=== PATIENT | female | born 1945 | race Caucasian/White ===

== ENCOUNTER 2016-10-17 07:43 | Day surgery (SDC) | payer MEDICARE, OTHER ==
[~2016-10-17] VITALS: Ht 157.5 cm; Wt 81.0 kg
[~2016-10-17 07:43] MED LIST: CeFAZolin Inj 2 GM in IV Premix 1 EACH IV ONE; HALO50CR2 TP; Lactated Ringer's 1,000 ML IV SCH; SIMV20TA4 PO; VALA100026 PO
[2016-10-17 08:05] VITALS: BP 157/78; PULSE 62; RESP 16; O2SAT 98
--- NOTE | 2016-10-17 18:18 | OP ---
[address] [address] OPERATIVE REPORT PATIENT: ANNE NORMAN : 1945 MR#: [id number] ADMIT: 10/17/2016 JOB ID: [id number] DATE OF SURGERY: 10/17/2016 ABORTED PROCEDURE NOTE: Patient was due to undergo arthroscopy of the right knee for partial medial and lateral meniscectomies. 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 On further questioning of the patient, she actually indicated that when she was in [place] for most of her life, she did have surgery for gallbladder removal. At that time, they gave her some type of blood product to keep her from having too much bleeding. Since the patient has not had a Hematology consultation and we are not totally sure of what type of hemophilia carrier she is, we have decided to abort going forward with the procedure and wait until she has a hematology consultation. We will arrange for hematology consultation and then reschedule the patient for surgery. The patient understood the rationale for not proceeding with the surgery today since it would not have been in her best interest. SURGEON: Nura Mai MD PREOPERATIVE DIAGNOSIS(ES):Right knee medial and lateral meniscal tears. Degenerative arthritis right knee. CC: [facility] Orthopedics. MICHELINED
== END 2016-10-17 23:59 | disposition home or self-care (01) ==
LOC: SAS 07:43
PROVIDERS: ATTEND Orthopaedic Surgery
DX: M23.300 Other meniscus derangements, unspecified lateral meniscus, right knee (principal); M23.303 Other meniscus derangements, unspecified medial meniscus, right knee; Z53.09 Procedure and treatment not carried out because of other contraindication; D66 Hereditary factor VIII deficiency

== ENCOUNTER 2016-11-28 09:54 | Day surgery (SDC) | payer MEDICARE, OTHER ==
--- NOTE | 2016-11-25 15:37 | PCM.ANEPRE ---
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 Last case was cancelled because of her diagnosis. Since that time she has been to a steel roller Her PTT is normal and her factor VIII activity os 72 % (anything >50% is fine). She has had multiple surgeries in the past without any bleeding issues. If bleeding were encountered use recombinant factor VIII ( which I am told we have). If all else fails use Cryoprecipitate. Ok to proceed. Chart Reviewed by: Jason Spencer MD Nov 25, 2016 15:37
[~2016-11-28] VITALS: Ht 157.5 cm; Wt 78.6 kg
[2016-11-28] VITALS (10 sets, daily range): BP systolic 120–154; BP diastolic 59–87; PULSE 54–75; RESP 0–17; O2SAT 89–100
[2016-11-28] MEDS: Lactated Ringer's 1,000 ML IV SCH ×3 (05:43→12:24)
--- NOTE | 2016-11-28 06:39 | PCM.HPANE ---
Patient Data Surgeon Admitting Provider: Attending Provider:Nura Mai MD Primary Care Physician:Boris Ace DO Other Provider:[facility] [facility] Reason for Visit Right Knee Medial Meniscal Tear Ht/WT & BMI Height (Feet): 5 Height (Inches): 2 Weight (Kilograms): 78. Body Mass Index 31.00 Allergies Coded Allergies: No Known Allergies (Verified Allergy, Unknown, 11/25/16) Past Anesthesia History Anesthesia History: Denies:: Abnormal Airway, Anesthesia Reactions, Difficult Intubation, Fam Anesthesia Reaction, Fam Malignant Hypertherm, Malignant Hyperthermia Diabetes History Hx Diabetes?: No MRSA MRSA: No Medications Reported Medications Ascorbic Acid/Ascorbate Sodium (Vit C-Shaina Hips 500 mg Chew Tb)500 Mg [id number] Mg PO 11/25/16 Vit D3 & K/Berberine HCl/Hops (Ostera Tablet)1 Each Tablet1 Each PO 11/25/16 Halobetasol Propionate 50 Gm Cream..g.50 Gm TP 11/25/16 Valacyclovir 1,000 Mg Tablet1,000 Mg PO 11/25/16 Simvastatin 20 Mg [id number] Mg PO HS Ref 0 12/06/15 History History of ENT Problems?: No HEENT History: Denies:: Abnormal Airway Cataracts Difficult Intubation Dysphagia Glaucoma Hearing Problem Denture Type: None Teeth Condition: Within Normal Limits Hx of Heart Problems?: Yes Cardiovascular History: Denies:: AICD Abdominal Aortic Aneurism Atrial Fibrillation Cardiac Surgery Chest Pain Congestive Heart Failure Coronary Artery Disease Edema Heart Murmur Hypertension (HYPERLIPIDEMIA) Irregular Heartbeat Pacemaker Peripheral Vascular (varicose viens) Rheumatic Fever Thrombophlebitis Valvular Heart Disease Hx of Respiratory Problem?: No Respiratory History: Denies:: Use of C-PAP Machine Hx Neurologic Problems?: No Neurological History: Denies:: Alzheimer's Disease CVA Dementia Dizziness Headaches Multiple Sclerosis Parkinson's Disease Seizures TIA Hx of GI Problems?: Yes Hx of Problems?: No Female Hx: Denies:: Currently (S/P BTL) Pelvic Inflammatory (HX RECURRENT GENITAL HERPES) Problems with Breasts? Skin History: Positive for:: History Skin Disorders? (LICHEN SCLEROSUS S/ P EXC BASAL & SQUAMOUS CELL CA'S) Hx Musculoskeletal Problems?: Yes Musculoskeletal History: Positive for:: Degenerative Joint (Rt knee) Musculoskeletal Trauma (RT KNEE DJD/MED & LAT MENISCUS TEARS=CURRENT PROBLEM) Osteoarthritis Denies:: Back Injury Fibromyalgia Joint Replacement Myasthenia Gravis Rheumatoid Arthritis Systemic Lupus Hx of Psycho/Social Problems?: No Psycho Social History: Denies:: Anxiety Hx Depression Hx Surgeries?: Yes (GALLBLADDER 2006) Hx Any Other Health Problems?: Yes Other History: Positive for:: Cancer (skin ca) Thyroid Disease (HX THYROID NODULES) Denies:: Endocrine Disease Hospitalization History Blood Transfusions: Positive for:: Accept Blood Products? Denies:: Blood Transfusions Hx Diabetes: No Hx Alcohol Use: YesAlcoholic Drinks Per Day: one glass of wine or a cocktail every eveningHx Substance Use: No Smoking Status: Never Smoker Have You Smoked inLast 12 mo: No Stop/Bang S-Snoring: Do You Snore Loudly: No T-Tired: feel tired, fatigued: No O-Obsered: Observed not breath: No P-Blood Pressure: treated: No B- Body Mass Index > 35 kg/m2: No A- Age over 50: Yes N- Neck Large Circumference: No G- Gender Male: No MARBELLA Total Score: 1 MARBELLA Risk Assessment: Low Risk, <3 Yes Risk Assessment Category Category 1A: Patient has history of documented sleep apnea, and HAS NOT received any narcotic, sedative or anesthesia administration during this stay. Category 1B: Patient has history of documented sleep apnea, and HAS received any narcotic , sedative or anesthesia administration during this stay Category 2: Patient has SUSPECTED Obstructive Sleep Apnea, and HAS received any narcotic , sedative or anesthesia administration during this stay. Category 3: Patient has SUSPECTED Obstructive Sleep Apnea and HAS NOT received narcotic, sedative or anesthesia administration during this stay. Category 4: Outpatient in Procedural Areas with known sleep apnea or who screen positive for High Risk via the STOP/BANG questionnaire. Exam Exam General Appearance: Alert, Oriented X3, Cooperative, No Acute Distress HEENT/AIRWAY: MP 2 Lungs: Clear to Auscultation, Normal Air Movement Heart: Exam Unremarkable, Regular Rate/Rhythm, No Murmurs/Rubs/Gallops Meds/Labs/Diagnostics Admission Meds Current Medications Lactated Ringer's (Lr) 1,000 ml @ 120 mls/hr Q8H20M IV Last administered on t 05:43; Start 11/28/16 at 05:00; Stop 11/28/16 at 13:19 Plan Impression Patient chart reviewed, patient interviewed and anesthestic plan with risks, benefits, and alternatives discussed, and informed consent obtained. NPO per Anesth. Guidelines: Yes ASA Physical Status: ASA2 Mod Systemic Disease Anesthetic Plan: GA Bene/Risks/Altern/Consents: Yes HP Complete Prior to Induction: Yes Other father with hemophilia, pt normal has had previous surgeries without difficulty Sal Perea MD Nov 28, 2016 06:39
[~2016-11-28 09:54] MED LIST changes: +ASCO-412 PO; -CeFAZolin Inj 2 GM in IV Premix 1 EACH IV ONE; +CeFAZolin Inj 2 GM in IV Premix 1 EACH IV SCH; +VIT1TABL55 PO
[2016-11-28] MEDS ORDERED: Propofol 10,000 mCg/mL 20 mL Inj ONE (09:55)
[2016-11-28] MEDS ORDERED: Dexamethasone 4 mg/mL Inj ONE (09:55)
[2016-11-28] MEDS ORDERED: Ondansetron 2 mg/mL 2 mL Inj ONE (09:55)
[2016-11-28] MEDS ORDERED: fentaNYL-PF 50 mCg/mL 2 mL Inj ONE (09:55)
[2016-11-28] MEDS ORDERED: Lactated Ringer's 1,000 ML IV SCH (11:43)
[2016-11-28] MEDS ORDERED: Lactated Ringer's 500 ML IV PRN (11:43)
[2016-11-28] MEDS ORDERED: Ondansetron 2 mg/mL 2 mL Inj IVPUSH PRN (11:45)
[2016-11-28] MEDS ORDERED: Phenylephrine 10,000 mCg/mL Inj IVPUSH PRN (11:45)
[2016-11-28] MEDS ORDERED: fentaNYL-PF 50 mCg/mL 2 mL Inj IVPUSH PRN (11:45)
[2016-11-28] MEDS ORDERED: Dexamethasone 4 mg/mL Inj IVPUSH PRN (11:45)
[2016-11-28] MEDS ORDERED: HYDROmorphone 1 mg/mL Inj IVPUSH PRN (11:45)
[2016-11-28] MEDS ORDERED: EPHEDrine Sulfate 50 mg/mL Inj IVPUSH PRN (11:45)
[2016-11-28] MEDS ORDERED: Atropine 0.4 mg/mL Inj IVPUSH PRN (11:45)
[2016-11-28] MEDS ORDERED: Labetalol 5 mg/mL 4 mL Inj IV PRN (11:45)
[2016-11-28] MEDS ORDERED: MetoCLOpramide 5 mg/mL 2 mL Inj IVPUSH PRN (11:45)
[2016-11-28] MEDS ORDERED: Bupivacaine-MPF 0.5% W/EPI 30 mL Inj INFILTRATE ONE (12:01)
[2016-11-28] MEDS ORDERED: oxyCODONE-Acetamin 5-325 mg Tablet PO PRN (12:45)
--- NOTE | 2016-11-28 14:29 | PCM.ANEP1 ---
Post Anesthesia PACU Phase 1 Assessment Vital Signs Vital Signs Date Time Temp Pulse Resp B/P Pulse Ox O2 Delivery O2 Flow Rate FiO2 11/28/16 13:20 36.1 56 17 137/61 100 Room Air 11/28/16 13:16 60 15 151/70 99 Room Air 11/28/16 13:00 36.4 75 16 132/82 99 Room Air 11/28/16 12:55 68 14 121/87 99 Room Air 11/28/16 12:50 69 12 128/68 100 Room Air 11/28/16 12:45 71 12 129/59 96 Simple Mask 8 11/28/16 12:40 36.0 75 17 123/66 98 Simple Mask 10 11/28/16 12:38 75 0 120/69 89 Simple Mask 10 11/28/16 10:11 35.9 64 14 131/66 99 Room Air Anesthetic Administered: GA Level of Alertness: Awake, talking CHANDLER's with Equal Strength: Yes Pain: No Nausea or Vomiting: No CV Function & Hydration Stable: No Airway Device: Oxygen Delivery: Simple Mask Lungs: Clear to Auscultation, Normal Air Movement PACU Phase 2 Assessment Complications: No Follow up Care: No Patient Instructions Provided: N/A Sal Perea MD Nov 28, 2016 14:28
--- NOTE | 2016-11-29 06:45 | OP ---
[address] [address] OPERATIVE REPORT PATIENT: ANNE NORMAN : 1945 MR#: [id number] ADMIT: 11/28/2016 JOB ID: [id number] DATE OF SURGERY: 11/28/2016 PREOPERATIVE DIAGNOSIS(ES): 1. Complex tear, right knee. 2. Posterior horn medial meniscus with some degeneration of the lateral meniscus. 3. Degenerative arthritis. POSTOPERATIVE DIAGNOSIS(ES): 1. Complex tear, right knee. 2. Posterior horn medial meniscus with some degeneration of the lateral meniscus. 3. Degenerative arthritis. PROCEDURE: 1. Right knee arthroscopy with partial medial meniscectomy. CPT code 86329. 2. Right knee arthroscopy with chondroplasty of the medial compartment, medial femoral condyle, medial tibial plateau and patellofemoral joint. CPT code 53478. SURGEON: Nura Mai MD. TROLLEY CAR MECHANIC: None. ANESTHESIA: General. ESTIMATED BLOOD LOSS: 1 mL. DRAINS: None. COMPLICATIONS: None. SPONGE AND NEEDLE COUNT: Correct. SPECIMENS: Meniscal debris suctioned out, but it was not sent for pathology. INTRAOPERATIVE FINDINGS: The patient had moderately severe patellofemoral arthritis particularly down to raw bone over the medial facet as well as inspection that was down to raw bone on the femoral trochlea. Medial compartment, the patient had grade 3-4 chondromalacia of the medial compartment with small areas down to raw bone over the femoral condyle and a portion of the medial tibial plateau. The patient had a complex tear of the posterior horn of the medial meniscus. The anterior cruciate was noted to be intact. Lateral compartment was inspected, and she was found to have relatively smooth articular surface of the lateral femoral condyle, lateral tibial plateau and only minimal fraying along the inner rim of the lateral meniscus. No discrete lateral meniscal tears were noted. There were no foreign bodies noted in either the medial or lateral gutters. DESCRIPTION OF PROCEDURE: Under general anesthetic, a well-padded tourniquet was applied to the right thigh. The right leg was prepped and draped in sterile fashion and leg was placed in the arthroscopic leg diaz. After appropriate time-out was called, the leg was elevated, exsanguinated and tourniquet inflated to 300 mmHg. arthroscopic portals both anterior medial and anterolateral were infiltrated with 0.5% Marcaine with epinephrine to decrease bleeding. After the tourniquet was inflated small incision was fashioned over the anterolateral portal and the arthroscope was introduced into the lateral portal. Sequential examination was carried out. The patient was found have relatively significant patellofemoral arthritis, particularly over the medial patellar facet and a portion of the femoral trochlea. The medial gutter was inspected. There were no loose bodies. Medial compartment showed a complex tear, posterior horn and medial meniscus and some degenerative arthritis of the medial femoral condyle and medial tibial plateau with down to the subchondral bone on both the femoral condyle and posterior medial portion of the medial tibial plateau. The anterior posterior cruciates were intact. The lateral meniscus was intact. It only showed some minor fraying at the rim, but no discrete tears and the articular surface of the lateral compartment was relatively smooth. Utilizing a spinal gauge needle, I placed an anteromedial portal and I debrided the posterior horn medial meniscal complex tear. O also performed some debridement of some fraying over the anterior portion of the medial meniscus. I also performed a chondroplasty of the medial femoral condyle and medial tibial plateau utilizing whisker shaver. The lateral compartment did not require any debridement. There was some exuberant tissue along the intercondylar notch anteriorly and some of this was removed taking significant care not to traumatize the anterior cruciate ligament. The suprapatellar pouch was again entered. I did perform a chondroplasty of the portion of the patella as well as the femoral condyle. No loose bodies were noted. The arthroscope was removed from the knee after taking appropriate permanent pictures and knee was drained. Each of the arthroscopic portals were repaired with horizontal mattress sutures of 3-0 nylon. The knee was instilled with 10 mL of Marcaine 0.5% with epinephrine for bleeding control. Xeroform dry sterile bulky dressing was applied and the tourniquet was released. The patient had good capillary refill in the leg. The patient was taken to recovery room in stable condition. Sponge and needle count correct. No complications. PLAN: The patient may weight bear as tolerated with a walker. She has an appointment for physical therapy on Thursday to begin range of motion to the knee and to have the dressings removed and apply a small dressing. The patient is a slightly higher risk for DVT. We will place her on Lovenox 40 mg subcu for three weeks. She was also discharged to home on Percocet 10-325, as well as a prescription for antibiotics for a few days. The patient may work on range of motion to the knee once her dressing is removed and she may weight bear as tolerated with her walker. She should follow up in the orthopedic clinic in two weeks for suture removal. I would recommend that she uses her rolling walker or crutches as long she has any significant antalgic gait. If the patient has any questions or concerns, she may contact us sooner. CC: [facility], Orthopedics.
== END 2016-11-28 23:59 | disposition home or self-care (01) ==
LOC: SAS 09:54
PROVIDERS: ATTEND Orthopaedic Surgery
DX: M23.221 Derangement of posterior horn of medial meniscus due to old tear or injury, right knee (principal); M22.41 Chondromalacia patellae, right knee; M17.0 Bilateral primary osteoarthritis of knee; E78.2 Mixed hyperlipidemia; D66 Hereditary factor VIII deficiency; Z85.828 Personal history of other malignant neoplasm of skin
CPT/HCPCS: 29881; J0690; J1100; J2250; J2405; J3010; J7120

== ENCOUNTER 2017-01-13 12:08 | Day surgery (SDC) | payer MEDICARE, OTHER ==
--- NOTE | 2017-01-07 09:48 | PCM.ANEPRE ---
Anesthesia Pre-Op Review Reason for Review: Hemophilia A Carrier Anesthesia Recommendations: Proceed with Procedure Additional Comments 71 y/o female scheduled for bladder sling; had a right knee arthroscopy 11/28 without problems. 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 Pt has been to a proposal specialist Her PTT is normal and her factor VIII activity os 72% (anything >50% is fine). She has had multiple surgeries in the past without any bleeding issues. If bleeding were encountered use recombinant factor VIII (which I am told we have) . If all else fails use Cryoprecipitate and consult Dr Merida; he is her proposal specialist and doesn't feel any labs are necessary for this surgery. Ok to proceed. Chart Reviewed by: Shar Sheffield MD, MD Jan 07, 2017 09:48
[~2017-01-13] VITALS: Ht 157.5 cm; Wt 81.0 kg
[2017-01-13] VITALS (10 sets, daily range): BP systolic 119–148; BP diastolic 60–70; PULSE 62–93; RESP 13–20; O2SAT 95–99
[~2017-01-13 12:08] MED LIST changes: -ASCO-412 PO; -HALO50CR2 TP; -VALA100026 PO; -VIT1TABL55 PO
[2017-01-13] MEDS ORDERED: EPHEDrine/NS 5 mg/mL 5 mL Syringe ONE (12:09)
[2017-01-13] MEDS ORDERED: Propofol 10,000 mCg/mL 20 mL Inj ONE (12:09)
[2017-01-13] MEDS ORDERED: fentaNYL-PF 50 mCg/mL 2 mL Inj ONE (12:09)
[2017-01-13] MEDS ORDERED: Dexamethasone 4 mg/mL Inj ONE (12:09)
[2017-01-13] MEDS ORDERED: Ondansetron 2 mg/mL 2 mL Inj ONE (12:09)
[2017-01-13] MEDS ORDERED: Lactated Ringer's 1,000 ML IV ONE (12:32)
[2017-01-13] MEDS ORDERED: Lactated Ringer's 500 ML IV PRN (16:33)
[2017-01-13] MEDS ORDERED: Lactated Ringer's 1,000 ML IV SCH (16:33)
--- NOTE | 2017-01-13 16:33 | PCM.HPANE ---
Patient Data Date of Service: Jan 13, 2017 Surgeon Admitting Provider: Attending Provider:Timothy Rodriguez MD Primary Care Physician:Boris Ace DO Other Provider:Jorge A Gutierrez Anesthesia Reason for Visit Female Stress Incontinence Ht/WT & BMI Height (Feet): 5 Height (Inches): 2.00 Weight (Kilograms): 78.000 Body Mass Index 31.00 Allergies Coded Allergies: No Known Allergies (Verified Allergy, Unknown, 01/06/17) Past Anesthesia History Anesthesia History: Denies:: Abnormal Airway, Anesthesia Reactions, Difficult Intubation, Fam Anesthesia Reaction, Fam Malignant Hypertherm, Malignant Hyperthermia Diabetes History Hx Diabetes?: No MRSA MRSA: No Medications Hypertension Medication: Yes Home Meds Incl Beta Caden: No Reported Medications Simvastatin 20 Mg [id number] Mg PO HS Ref 0 01/06/17 Discontinued Reported Medications Ascorbic Acid/Ascorbate Sodium (Vit C-Shaina Hips 500 mg Chew Tb)500 Mg Tab.[id number] Mg PO 11/25/16 Vit D3 & K/Berberine HCl/Hops (Ostera Tablet)1 Each Tablet1 Each PO 11/25/16 Halobetasol Propionate 50 Gm Cream..g.50 Gm TP 11/25/16 Valacyclovir 1,000 Mg Tablet1,000 Mg PO 11/25/16 Simvastatin 20 Mg [id number] Mg PO HS Ref 0 12/06/15 History History of ENT Problems?: No HEENT History: Denies:: Abnormal Airway Cataracts Difficult Intubation Dysphagia Hearing Problem Denture Type: None Teeth Condition: Within Normal Limits Hx of Heart Problems?: Yes Cardiovascular History: Denies:: AICD Abdominal Aortic Aneurism Atrial Fibrillation Cardiac Surgery Chest Pain Congestive Heart Failure Edema Heart Murmur Hypertension Irregular Heartbeat Pacemaker Rheumatic Fever Thrombophlebitis Valvular Heart Disease Hx of Respiratory Problem?: No Respiratory History: Denies:: Asthma COPD Emphysema Oxygen Administration Pneumonia Tuberculosis Use of C-PAP Machine Hx Neurologic Problems?: No Neurological History: Denies:: Alzheimer's Disease CVA Dementia Dizziness Headaches Multiple Sclerosis Parkinson's Disease Seizures Hx of GI Problems?: Yes Hx of Problems?: No Female Hx: Denies:: Currently Pelvic Inflammatory Problems with Breasts? Skin History: Positive for:: History Skin Disorders? (LICHEN SCLEROSUS S/ P EXC BASAL & SQUAMOUS CELL CA'S) Hx Musculoskeletal Problems?: Yes Musculoskeletal History: Positive for:: Degenerative Joint Musculoskeletal Trauma (hx of right knee arthroscopy 11/2016) Denies:: Back Injury Joint Replacement Systemic Lupus Hx of Psycho/Social Problems?: No Psycho Social History: Denies:: Anxiety Hx Depression Hx Surgeries?: Yes (GALLBLADDER 2006, knee arthroscopy ) Hx Any Other Health Problems?: Yes Other History: Positive for:: Cancer (skin ca) Thyroid Disease (HX THYROID NODULES) Denies:: Endocrine Disease Hospitalization History Blood Transfusions: Denies:: Blood Transfusions Hx Diabetes: No Hx Alcohol Use: YesHx Substance Use: No Smoking Status: Never Smoker Have You Smoked inLast 12 mo: No Stop/Bang S-Snoring: Do You Snore Loudly: No T-Tired: feel tired, fatigued: No O-Obsered: Observed not breath: No P-Blood Pressure: treated: No B- Body Mass Index > 35 kg/m2: No A- Age over 50: Yes N- Neck Large Circumference: No G- Gender Male: No MARBELLA Total Score: 1 MARBELLA Risk Assessment: Low Risk, <3 Yes Risk Assessment Category Category 1A: Patient has history of documented sleep apnea, and HAS NOT received any narcotic, sedative or anesthesia administration during this stay. Category 1B: Patient has history of documented sleep apnea, and HAS received any narcotic , sedative or anesthesia administration during this stay Category 2: Patient has SUSPECTED Obstructive Sleep Apnea, and HAS received any narcotic , sedative or anesthesia administration during this stay. Category 3: Patient has SUSPECTED Obstructive Sleep Apnea and HAS NOT received narcotic, sedative or anesthesia administration during this stay. Category 4: Outpatient in Procedural Areas with known sleep apnea or who screen positive for High Risk via the STOP/BANG questionnaire. Exam Exam Vital Signs Vital Signs Date Time Temp Pulse Resp B/P Pulse Ox O2 Delivery O2 Flow Rate FiO2 01/13/17 12:27 36.6 62 15 138/67 99 Room Air General Appearance: Oriented X3 HEENT/AIRWAY: MP 1 Lungs: Clear to Auscultation Heart: Exam Unremarkable Meds/Labs/Diagnostics Admission Meds Current Medications Lactated Ringer's (Lr) 1,000 ml @ ud STK-MED ONCE IV Last administered on 01/13t 12:32; Start 01/13/17 at 12:32; Stop 01/13/17 at 12:33; Status DC Plan Impression Patient chart reviewed, patient interviewed and anesthestic plan with risks, benefits, and alternatives discussed, and informed consent obtained. NPO per Anesth. Guidelines: Yes ASA Physical Status: ASA2 Mod Systemic Disease Anesthetic Plan: GA Bene/Risks/Altern/Consents: Yes HP Complete Prior to Induction: Yes Glenn Cortés MD Jan 13, 2017 16:33
[2017-01-13] MEDS ORDERED: HYDROmorphone 1 mg/mL Inj IVPUSH PRN (16:35)
[2017-01-13] MEDS ORDERED: Phenylephrine 10,000 mCg/mL Inj IVPUSH PRN (16:35)
[2017-01-13] MEDS ORDERED: Dexamethasone 4 mg/mL Inj IVPUSH PRN (16:35)
[2017-01-13] MEDS ORDERED: Ondansetron 2 mg/mL 2 mL Inj IVPUSH PRN ×2 (16:35→17:35)
[2017-01-13] MEDS ORDERED: MetoCLOpramide 5 mg/mL 2 mL Inj IVPUSH PRN (16:35)
[2017-01-13] MEDS ORDERED: EPHEDrine Sulfate 50 mg/mL Inj IVPUSH PRN (16:35)
[2017-01-13] MEDS ORDERED: Bupivacaine-MPF 0.5% 30 mL Inj INFILTRATE ONE (16:50)
[2017-01-13] MEDS ORDERED: Vasopressin 20 Unit/mL Inj SUBQ ONE (16:51)
[2017-01-13] MEDS ORDERED: Gentamicin 40 mg/mL 2 mL Inj IRRIGATION ONE (16:57)
[2017-01-13] MEDS ORDERED: Estrogens Conjugated 30 Gm Vaginal Cream VAGINAL ONE (17:07)
[2017-01-13] MEDS ORDERED: Senna-Docusate 8.6-50 mg Tablet PO PRN (17:35)
[2017-01-13] MEDS ORDERED: Alum-Mag Hydrox-Simeth 30 mL Suspension PO PRN (17:35)
[2017-01-13] MEDS ORDERED: Acetaminophen IV 1,000 MG in IV Premix 1 EACH IV PRN (17:35)
[2017-01-13] MEDS ORDERED: Ketorolac 15 mg/mL Inj ONE (17:52)
[2017-01-13] MEDS: fentaNYL-PF 50 mCg/mL 2 mL Inj IVPUSH PRN ×4 (18:05→18:15)
--- NOTE | 2017-01-13 18:16 | OP ---
[address] [address] OPERATIVE REPORT PATIENT: ANNE NORMAN : 1945 MR#: [id number] ADMIT: 01/13/2017 JOB ID: [id number] DATE OF SURGERY: 01/13/2017 SURGEON: Timothy Rodriguez MD PROCEDURE: Midurethral transobturator sling placement. PREOPERATIVE DIAGNOSIS(ES): Stress urinary incontinence. POSTOPERATIVE DIAGNOSIS(ES): Stress urinary incontinence. ANESTHESIA: General. ESTIMATED BLOOD LOSS: 30 mL. ESTIMATED URINE OUTPUT: 150 mL. FLUIDS: 650 mL of lactated Ringer. COMPLICATIONS: None. FINDINGS: Normal perineum and vaginal mucosa, anteverted uterus normal in size, relatively short urethra. Normal appearance of bladder mucosa and ureteral jets seen during cystoscopy at the end of the procedure. PROCEDURE IN DETAIL: The patient was brought to the operating room, where she underwent general anesthesia without difficulties. The patient was placed in a dorsal lithotomy position using Sials stirrups. She was prepped and draped in usual surgical fashion. She received preoperative antibiotics. Time-out was performed verifying correct patient, correct procedure. A weighted speculum was placed into the vagina. The Pablo catheter was placed. The midurethral portion was located and local injection of vasopressin was administered. Twenty units of vasopressin was diluted in 100 cc of normal saline. A total about 10 units of vasopressin used during the procedure. Using scalpel, sagittal incision in midurethral portion was made. Two Nguyen clamps were placed on each side of the incision. Using Metzenbaum scissors, dissection was provided between the vaginal mucosa and underlying structures at midurethral portion. Entry points were marked. On each side, the Padilla needle entry point was marked at the level of the clitoris, 1 cm inferior and laterally from the insertion of adductor longus muscle tendon. Local injection of lidocaine was done and the skin was perforated with a scalpel on both sides. Using Padilla midurethral sling device, the helical needle was introduced initially in the patient's left side. With the rotating motion, the obturator membrane was perforated and the needle came out at mid urethral portion. The same was done on the patient's contralateral side. The midurethral sling was attached and with a backward motion of both needles it was placed tension free in the middle of the urethra. The Pablo catheter was removed and cystoscopy was performed with the findings mentioned above. The Pablo catheter was replaced. FloSeal solution was injected on the left and right area of dissection for better hemostasis. The vaginal mucosa was reapproximated using 2-0 Vicryl. The sling was trimmed at the level of the skin entry points and the skin was closed with one interrupted 2-0 Vicryl suture on each side. Dermabond was applied as well. The vaginal packing was placed using 2 inches packing soaked in a Premarin cream. The patient was repositioned back into the supine position. She tolerated the procedure well and was transferred to the recovery room in stable condition.
[2017-01-13] MEDS: Lactated Ringer's 1,000 ML IV SCH (19:33)
[2017-01-13] MEDS: Senna-Docusate 8.6-50 mg Tablet PO SCH (21:31)
[2017-01-13] MEDS: oxyCODONE-Acetamin 5-325 mg Tablet PO PRN (21:34)
[2017-01-14 00:31] LABS: APPEARANCE,URINE CLEAR (CLEAR,HAZY); COLOR,URINE YELLOW (YELLOW); PH,URINE 5.5 (5.0-8.0)
[2017-01-14 00:32] LABS: OCCULT BLOOD,URINE MODERATE (NEGATIVE); UROBILINOGEN,URINE NORMAL (NORMAL)
--- NOTE | 2017-01-14 01:29 | PCM.ANEP1 ---
Post Anesthesia PACU Phase 1 Assessment Vital Signs Vital Signs Date Time Temp Pulse Resp B/P Pulse Ox O2 Delivery O2 Flow Rate FiO2 01/13/17 23:50 36.2 93 20 119/65 95 01/13/17 19:30 36.1 82 19 148/60 98 01/13/17 18:00 67 15 148/70 97 Room Air 01/13/17 17:55 78 15 137/68 99 Room Air 01/13/17 17:50 76 18 148/64 96 Room Air 01/13/17 17:45 70 13 139/66 98 Room Air 01/13/17 17:40 80 16 142/70 97 Room Air 01/13/17 17:35 83 15 140/69 97 Room Air 01/13/17 17:30 37.1 82 16 134/63 96 Room Air Anesthetic Administered: GA Level of Alertness: Awake, talking Pain: No (pt stated not in pain right now) Pain Scale Score: 2 Nausea or Vomiting: No CV Function & Hydration Stable: Yes Airway Device: Oxygen Delivery: Room Air Lungs: Clear to Auscultation PACU Phase 2 Assessment Complications: No Follow up Care: N/A Patient Instructions Provided: N/A Glenn Cortés MD Jan 14, 2017 01:29
[2017-01-14] MEDS: Lactated Ringer's 1,000 ML IV SCH (03:12)
[2017-01-14 04:25] VITALS: BP 129/62; PULSE 80; RESP 20; O2SAT 96
--- NOTE | 2017-01-14 05:44 | NUR ---
Post op progress Pt did not have diet ordered so oncology admin paged and received order for general diet. brought in food and pt tolerated without nausea. Pt reporting pain up to 4/10 and took 1 percocet at bedtime. Pt also using heat pad for comfort. Pt reported this to be effective and is pain free this morning. Pt up with SBA to help with IV pole and dill bag, steady on feet and tolerating activity well. Pt has on mesh underwear with brittni pad. Brittni pad with bloody drainage, changed x1 so far. Plan to remove vaginal packing and dill this morning.
--- NOTE | 2017-01-14 06:47 | NUR ---
Pablo/ vaginal packing Pablo DC'd this morning at 0630 per orders without issues. Vaginal packing removed. Maria D pad with mesh panties in place. Pt tolerated well.
[2017-01-14 07:33] LABS: BASOPHILS % (AUTO) 0.1 % (0-3); EOSINOPHILS % (AUTO) 0 % (0-5); MONOCYTES % (AUTO) 6.1 % (4-12); Mean Corpuscular Volume 87.2 fL (81-100); NEUTROPHILS % (AUTO) 84.2 % (40-74); Platelet Count 191 bil/L (150-400)
[2017-01-14] MEDS: Senna-Docusate 8.6-50 mg Tablet PO SCH (08:05)
[2017-01-14] MEDS: oxyCODONE-Acetamin 5-325 mg Tablet PO PRN ×2 (08:06→12:19)
--- NOTE | 2017-01-14 11:15 | PCM.DIMED ---
Discharge Instructions Date of Service Jan 14, 2017 Dates of Hospitalization Diet Discharge Diet: No restrictions Activity Discharge Activity: No restrictions Call your provider Call your provider for: Fever or Chills, Shortness of breath, Bleeding, Chest pain, Vomitting, Excessive diarrhea, Weakness (unilateral) Patient Instructions Follow-up with PCP in: 2 weeks Timothy Rodriguez MD Jan 14, 2017 11:15
[2017-01-14] MEDS ORDERED: OXYC-530 PO (11:17)
[2017-01-14] MEDS ORDERED: IBUP800T28 PO (11:17)
[2017-01-14] MEDS ORDERED: DOCU-41 PO (11:17)
--- NOTE | 2017-01-14 12:53 | NUR ---
Discharge note- Up ad tiffany. Tolerated activity well. Voided and post residual amt. is 58cc. Oral pain meds effective for incision pain. Discharged to home with with personal belongings.
--- NOTE | 2017-01-14 13:19 | DIS ---
[address] [address] DISCHARGE SUMMARY PATIENT: ANNE NORMAN : 1945 MR#: [id number] ADMIT: 01/13/2017 JOB ID: [id number] DIS: 01/14/2017 ADMITTING DIAGNOSIS: Stress urinary incontinence. DISCHARGE DIAGNOSIS: Stress urinary incontinence. HISTORY AND HOSPITAL COURSE: The patient is a 71-year-old, 2, para 2, who was admitted for midurethral transobturator sling placement on January 13, 2017. The patient has a medical history of hypertension and hypercholesterolemia. The procedure went uncomplicated. The sling was placed. The patient was kept overnight for pain management and management of blood pressure. Lisinopril was administered at 10 mg p.o. daily. She received DVT prophylaxis with Lovenox. The vaginal packing was removed on the morning of January 14, 2017, with no bleeding noted, and the Pablo catheter was removed as well. IV fluids were discontinued on the morning of January 14, 2017, postoperative day one. The physical exam was benign. Vital signs showed temperature 36.6, pulse 80, respiratory rate 20, blood pressure 129/62. The patient was able to ambulate. Pain was under control. The abdomen was soft, nontender and nondistended. The patient was able to void. Postvoid residual showed 58 mL of urine. Postoperative CBC showed WBC count of 9.9, hemoglobin 11.5, hematocrit 34.6, platelets 191. The patient was sent home on postoperative day one, January 14, 2017, in stable condition with all discharge criteria met. She received discharge medications includin. Motrin 800 mg p.o. t.i.d. p.r.n. 2. Oxycodone 5 mg p.o. q.i.d. p.r.n. for breakthrough pain. 3. Colace 100 mg p.o. b.i.d. p.r.n. Followup visit in [facility] is scheduled in two weeks.
== END 2017-01-14 12:20 | disposition home or self-care (01) ==
LOC: SAS 12:08 → OSC 18:54 → SAS 01-14 12:20
PROVIDERS: ATTEND Legal Medicine
DX: N39.3 Stress incontinence (female) (male) (principal); I10 Essential (primary) hypertension; E78.2 Mixed hyperlipidemia; E78.00 Pure hypercholesterolemia, unspecified; M19.90 Unspecified osteoarthritis, unspecified site; Z85.828 Personal history of other malignant neoplasm of skin
CPT/HCPCS: 36415; 57288; 81000; 85025; 96372; C1771; J0690; J1100; J1580; J1650; J1885; J2405; J2704; J3010; J7120